=== PATIENT | female | born 1990 | race Caucasian/White ===

== ENCOUNTER → 2025-01-17 09:32 | Outpatient (REF) | payer OTHER, SELFPAY | LOC: WDC 09:32 | PROVIDERS: ATTENDING PHYSICIAN Nurse Practitioner Adult Health | DX: N63.10 Unspecified lump in the right breast, unspecified quadrant (principal); N64.9 Disorder of breast, unspecified | CPT/HCPCS: 76642; 77062; 77066 ==

== ENCOUNTER → 2025-06-24 15:05 | Outpatient (REF) | payer OTHER, SELFPAY | LOC: PNTC 15:05 | PROVIDERS: ATTENDING PHYSICIAN Obstetrics & Gynecology | DX: O36.80X0 Pregnancy with inconclusive fetal viability, not applicable or unspecified (principal) | CPT/HCPCS: 76801 ==